=== PATIENT | male | born 1995 | race African-American/Black ===

== ENCOUNTER 2018-12-16 12:34 | Emergency (ER) | payer SELFPAY ==
[2018-12-16] MEDS ORDERED: ONDANSETRON 4 MG TAB.RAPDIS PO ONE (13:43)
[2018-12-16] MEDS ORDERED: KETOROLAC TROMETHAMINE INJ/PF 30 MG/1 ML SDV IV ONE (13:55)
--- NOTE | 2018-12-16 13:57 | ER Document Report ---
ED Medical Screen (RME) - General Chief Complaint: Abdominal Pain Stated Complaint: ABDOMINAL PAIN Time Seen by Provider: 12/16/18 13:52 Mode of Arrival: Ambulatory Information source: Patient TRAVEL OUTSIDE OF THE [place] IN LAST 30 DAYS: No - HPI Patient complains to provider of: ABDOMINAL PAIN Notes: 12/16/18 13:56 Patient is here with complaints of lower abdominal pain. He states the pain started fairly suddenly this morning. Is across his lower abdomen and lower back. Pain is constant. Has nausea, vomiting, diarrhea with it. No fever. No dysuria or hematuria. Had prior umbilical hernia repair as a child. No other complaints. Exam Patient appears to be uncomfortable, moaning and writhing. Heart sounds normal. Lung sounds normal. No CVA tenderness. Tenderness across the lower abdomen on limited triage abdominal exam. Plan CBC, CMP, lipase, urine, saline lock, Toradol, Zofran, CT abdomen pelvis with IV contrast. An initial examination was made on the patient as part of the triage process, and it was determined a more comprehensive evaluation was necessary. Initial labs were ordered and patient was transferred to another provider in the ED who assumed care and finished evaluation and plan. - Related Data Allergies/Adverse Reactions: Sulfa (Sulfonamide Antibiotics) Allergy (Verified 12/16/18 13:42) Past Medical History - Social History Chew tobacco use (# tins/day): No Frequency of alcohol use: Occasional Drug Abuse: None Renal/ Medical History: Denies: Hx Peritoneal Dialysis Past Surgical History: Reports: Hx Bowel Surgery - hernia repair, Hx Orthopedic Surgery - wrist Physical Exam - Vital signs Vitals: Temp Pulse BP Pulse Ox 98.3 F 82 132/88 H 100 12/16/18 12:42 12/16/18 12:42 12/16/18 12:42 12/16/18 12:42 Course - Vital Signs Vital signs: Temp Pulse Resp BP Pulse Ox 98.3 F 82 132/88 H 100 12/16/18 12:42 12/16/18 12:42 12/16/18 12:42 12/16/18 12:42
[2018-12-16 14:21] LABS: HEMATOCRIT 46.9 % (37.9-51.0); HEMOGLOBIN 16.1 g/dL (13.5-17.0); MEAN CORPUSCULAR HEMOGLOBIN 30.9 pg (27.0-33.4); MEAN CORPUSCULAR HGB CONC 34.2 g/dL (32.0-36.0); MEAN CORPUSCULAR VOLUME 90 fl (80-97); PLATELET COUNT 273 10^3/uL (150-450); RED CELL DISTRIBUTION WIDTH 12.3 % (11.5-14.0); WHITE BLOOD COUNT 12.1 10^3/uL (4.0-10.5)
[2018-12-16 14:37] LABS: ALANINE AMINOTRANSFERASE 35 U/L (21-72); ALBUMIN 5.2 g/dL (3.5-5.0); ALKALINE PHOSPHATASE 68 U/L (38-126); ANION GAP 17 (5-19); ASPARTATE AMINO TRANSFERASE 29 U/L (17-59); BILIRUBIN,DIRECT 0.4 mg/dL (0.0-0.4); BILIRUBIN,TOTAL 1.9 mg/dL (0.2-1.3); BLOOD UREA NITROGEN 19 mg/dL (7-20); CALCIUM 10.5 mg/dL (8.4-10.2); CARBON DIOXIDE 24 mmol/L (22-30); CHLORIDE 101 mmol/L (98-107); GLUCOSE 116 mg/dL (75-110); LIPASE 50.4 U/L (23-300); POTASSIUM 4.1 mmol/L (3.6-5.0); SODIUM 141.5 mmol/L (137-145); TOTAL PROTEIN 8.9 g/dL (6.3-8.2)
[2018-12-16 15:14] LABS: ABSOLUTE LYMPHOCYTES# (MANUAL) 0.4 10^3/uL (0.5-4.7); ABSOLUTE MONOCYTES # (MANUAL) 0.6 10^3/uL (0.1-1.4); ABSOLUTE NEUTROPHILS# (MANUAL) 11.1 10^3/uL (1.7-8.2); BASOPHILS % (MANUAL) 0 % (0-2); EOSINOPHILS % (MANUAL) 0 % (0-6); LYMPHOCYTES % (MANUAL) 3 % (13-45); MONOCYTES % (MANUAL) 5 % (3-13); SEGMENTED NEUTROPHILS % (MAN) 92 % (42-78); TOTAL CELLS COUNTED 100
[2018-12-16 15:18] LABS: OVALOCYTES SLIGHT; POIKILOCYTOSIS SLIGHT; TEAR DROP CELLS SLIGHT
[2018-12-16 15:19] LABS: PLATELET COMMENT ADEQUATE
[2018-12-16 15:49] LABS: APPEARANCE,URINE CLEAR; BILIRUBIN,URINE NEGATIVE (NEGATIVE); COLOR,URINE YELLOW; GLUCOSE, URINE NEGATIVE (NEGATIVE); KETONES,URINE TRACE mg/dL (NEGATIVE); LEUKOCYTE ESTERASE,URINE NEGATIVE (NEGATIVE); NITRITE,URINE NEGATIVE (NEGATIVE); PROTEIN,URINE NEGATIVE (NEGATIVE); UROBILINOGEN,URINE NEGATIVE mg/dL (<2.0)
[2018-12-16 16:13] LABS: URINE SPECIFIC GRAVITY > 1.060
--- NOTE | 2018-12-16 16:20 | RADIOLOGY REPORT (SQ) ---
EXAM DESCRIPTION: CT ABD/PELVIS WITH IV ONLY COMPLETED DATE/TIME: 12/16/2018 4:02 pm REASON FOR STUDY: LOWER ABO PAIN COMPARISON: None. TECHNIQUE: CT scan of the abdomen and pelvis performed using helical scanning technique with dynamic intravenous contrast injection. No oral contrast. Images reviewed with lung, soft tissue, and bone windows. Reconstructed coronal and sagittal MPR images reviewed. Delayed images for evaluation of the urinary system also acquired. All images stored on PACS. All CT scanners at this facility use dose modulation, iterative reconstruction, and/or weight based d osing when appropriate to reduce radiation dose to as low as reasonably achievable (ALARA). [facility]: Dose Right [facility]: CareDose [facility]: Dose Right [facility]: Teradose 4D [facility]: Definicare CONTRAST TYPE AND DOSE: contrast/concentration: Isovue 350.00 mg/ml; Total Contrast Delivered: 78.0 ml; Total Saline Delivered: 67.0 ml RENAL FUNCTION: GFR > 60. RADIATION DOSE: CT Rad equipment meets quality standard of care and radiation dose reduction techniq ues were employed. CTDIvol: 5.3 - 7.2 mGy. DLP: 690 mGy-cm.. LIMITATIONS: None. FINDINGS: LOWER CHEST: No significant findings. No nodules or infiltrates. LIVER: Normal size. No masses. No dilated ducts. SPLEEN: Normal size. No focal lesions. PANCREAS: No masses. No significant calcifications. No adjacent inflammation or peripancreatic fluid collections. Pancreatic duct not dilated. GALLBLADDER: No identified stones by CT criteria. No inflammatory changes to suggest cholecystitis. ADRENAL GLANDS: No significant masses or asymmetry. RIGHT KIDNEY AND URETER: No solid masses. No significant calcifications. No hydronephrosis or hyd roureter. LEFT KIDNEY AND URETER: No solid masses. No significant calcifications. No hydronephrosis or hydr oureter. AORTA AND VESSELS: No aneurysm. No dissection. Renal arteries, SMA, celiac without stenosis. RETROPERITONEUM: No retroperitoneal adenopathy, hemorrhage or masses. BOWEL AND PERITONEAL CAVITY: No masses or inflammatory changes. No free fluid or peritoneal masses. APPENDIX: Normal. PELVIS: No mass. No free fluid. Normal bladder. ABDOMINAL WALL: No masses. No hernias. BONES: No significant or acute findings. OTHER: No other significant finding. IMPRESSION: NO SIGNIFICANT OR ACUTE FINDING IN THE ABDOMEN OR PELVIS ON CT SCAN WITH IV CONTRAST. TECHNICAL DOCUMENTATION: JOB ID: [id number] Quality ID # [id number]: Final reports with documentation of one or more dose reduction techniques (e.g., Au tomated exposure control, adjustment of the mA and/or kV according to patient size, use of iterative reconstruction technique) 2010 [employer]- All Rights Reserved Reading location - IP/workstation name: [email or web address]
--- NOTE | 2018-12-16 16:28 | ER Document Report ---
ED GI/ - General Chief Complaint: Abdominal Pain Stated Complaint: ABDOMINAL PAIN Time Seen by Provider: 12/16/18 13:52 Mode of Arrival: Ambulatory Information source: Patient Notes: Patient is a 23-year-old male comes emergency room complaining of sudden onset of abdominal pain starting at midnight last night. Patient states he started with what he felt was more like left lower quadrant pain but now it radiated across the right lower quadrant pain and he has had at least 6 bouts of vomiting which he states has been volume is and forceful to the point where he might vomited up some blood. And the diarrhea. The combination of both has been about 6 times since midnight last night. It was reported the patient was writhing in pain on initial evaluation upfront. Patient denies any other medical problems with the exception of having hernia repair as an . Currently works at [employer] and smokes 1 to 2 cigarettes a week. TRAVEL OUTSIDE OF THE [place] IN LAST 30 DAYS: No - HPI Patient complains to provider of: Abdominal pain. No: Dysuria, Groin pain, Hematuria, Testicular pain Onset: Other - Last evening Timing/Duration: Sudden, Persistent Quality of pain: Achy, Cramping, Sharp, Stabbing, Throbbing Severity at maximum: Moderate Severity in ED: Moderate Pain Level: 3 Location: LLQ, RLQ, Low back Sexual history: Active Associated symptoms: Blood in emesis, Diarrhea, Nausea, Radiates to back, Vomiting. denies: Fever, Hematuria Exacerbated by: Denies Relieved by: Denies Similar symptoms previously: No Recently seen / treated by doctor: No - Related Data Allergies/Adverse Reactions: Sulfa (Sulfonamide Antibiotics) Allergy (Verified 12/16/18 13:42) Past Medical History - General Information source: Patient - Social History Smoking Status: Current Some Day Smoker Cigarette use (# per day): Yes - 1 to 202 weeks Chew tobacco use (# tins/day): No Smoking Education Provided: Yes Frequency of alcohol use: Occasional Drug Abuse: None Lives with: Family Family History: None, Reviewed & Not Pertinent Patient has suicidal ideation: No Patient has homicidal ideation: No Renal/ Medical History: Denies: Hx Peritoneal Dialysis Past Surgical History: Reports: Hx Bowel Surgery - hernia repair, Hx Orthopedic Surgery - wrist Review of Systems - Review of Systems Constitutional: No symptoms reported EENT: No symptoms reported Cardiovascular: No symptoms reported Respiratory: No symptoms reported Gastrointestinal: See HPI, Abdominal pain, Diarrhea, Nausea, Vomiting Genitourinary: No symptoms reported Male Genitourinary: No symptoms reported Musculoskeletal: No symptoms reported Skin: No symptoms reported Hematologic/Lymphatic: No symptoms reported Neurological/Psychological: No symptoms reported -: Yes All other systems reviewed and negative Physical Exam - Vital signs Vitals: Temp Pulse BP Pulse Ox 98.3 F 82 132/88 H 100 12/16/18 12:42 12/16/18 12:42 12/16/18 12:42 12/16/18 12:42 Interpretation: Normal, Hypertensive - General General appearance: Appears well In distress: None Notes: PHYSICAL EXAMINATION: GENERAL: Well-appearing, well-nourished and in no acute distress. However does appear somewhat uncomfortable. HEAD: Atraumatic, normocephalic. EYES: Pupils equal round and reactive to light, extraocular movements intact, sclera anicteric, conjunctiva are normal. ENT: Nares patent, oropharynx clear without exudates. Moist mucous membranes. NECK: Normal range of motion, supple without lymphadenopathy LUNGS: Breath sounds clear to auscultation bilaterally and equal. No wheezes rales or rhonchi. HEART: Regular rate and rhythm without murmurs ABDOMEN: Examination patient's area of concern is his abdomen. He displays bowel sounds in all 4 quads. He is tender greater on the left lower quadrant but extends into the right sided quad as well. Both upper quadrants are negative for any acute findings. He is somewhat tympanitic in the upper quadrants when supine. He displays moderate amount of this tenderness to percussion over the left lower quadrant. Musculoskeletal: Normal range of motion, no pitting or edema. No cyanosis. NEUROLOGICAL: Normal speech, normal gait. Normal sensory, motor exams PSYCH: Normal mood, normal affect. SKIN: Warm, Dry, normal turgor, no rashes or lesions noted. Course - Re-evaluation Re-evalutation: 12/16/18 17:48 Patient stay was pretty uneventful. His CT showed to be impression of no significant acute findings in the abdomen or pelvis on CT scan with IV contrast. Patient feels much better although he is not 100% believe this to be more of a gas type relation or a early gastroenteritis presentation. So we will put him on some Levsin and have him follow-up outpatient as needed. - Vital Signs Vital signs: Temp Pulse Resp BP Pulse Ox 98.3 F 82 132/88 H 100 12/16/18 12:42 12/16/18 12:42 12/16/18 12:42 12/16/18 12:42 - Laboratory Result Diagrams: 12/16/18 14:00 12/16/18 14:00 Laboratory results interpreted by me: 12/16/18 12/16/18 12/16/18 14:00 14:00 15:35 WBC 12.1 H Seg Neuts % (Manual) 92 H Lymphocytes % (Manual) 3 L Abs Neuts (Manual) 11.1 H Abs Lymphs (Manual) 0.4 L Glucose 116 H Calcium 10.5 H Total Bilirubin 1.9 H Total Protein 8.9 H Albumin 5.2 H Urine Ketones TRACE H Discharge - Discharge Clinical Impression: Abdominal pain in male Abdominal pain Qualifiers: Abdominal location: generalized Qualified Code(s): R10.84 - Generalized abdominal pain Condition: Stable Disposition: HOME, SELF-CARE Instructions: Abdominal Pain ([facility]), Antispasmodics ([facility]) Additional Instructions: Home and rest. Clear liquid diet for the next 24 hours then advance slowly as tolerated. I am giving some medication that should help stop the discomfort highly suggest that you go slowly with interjecting new foods back in your diet. Should you have any concerns or problems over the next couple of days or if your vomiting gets worse or the diarrhea continues you can return to ER for recheck. You may also try some Imodium [id number] and follow directions on the bottle. Prescriptions: Hyoscyamine Sulfate [Levsin 0.125 Tablet] 0.25 mg PO ACHS PRN #40 tablet PRN Reason: Forms: Return to School, Return to Work
[2018-12-16] MEDS ORDERED: METOCLOPRAMIDE HCL INJ/PF 10 MG/2 ML SDV IV ONE (16:29)
[2018-12-16 18:30] VITALS: BP 131/71
== END 2018-12-16 18:33 | disposition home or self-care (01) ==
LOC: ER 12:34
DX: R10.84 Generalized abdominal pain (principal); R10.9 Unspecified abdominal pain; R10.32 Left lower quadrant pain; R19.7 Diarrhea, unspecified; R04.2 Hemoptysis; R11.0 Nausea; M54.9 Dorsalgia, unspecified; F17.210 Nicotine dependence, cigarettes, uncomplicated
CPT/HCPCS: 99283; 96374; 96375; 36415; 83690; 85025; 80053; 81001; 74177; S0119; J1885; J2765